=== PATIENT | female | born 1990 | race Caucasian/White ===

== ENCOUNTER 2017-01-07 07:39 | Outpatient (CLI) | payer BC ==
[~2017-01-07] VITALS: Ht 157.5 cm; Wt 73.8 kg
[2017-01-07 07:50] VITALS: BP 122/76; RESP 16; Ht 157.5 cm; Wt 73.8 kg
[2017-01-07] MEDS ORDERED: PREN1TAB17 PO (07:52)
--- NOTE | 2017-01-07 11:41 | RADRPT ---
PROCEDURE: US OB biophysical profile. CLINICAL INDICATION: decreased movements, contractions TECHNIQUE: Multiple sonographic images of the pelvis were obtained. The images were reviewed on a PACS workstation. COMPARISON: No prior studies are available for comparison. FINDINGS: There is a single viable intrauterine gestation. Cardiac activity is present with 144 beats per min [place]mute. There is a vertex presentation. The placenta is anterior. There is no evidence of placental abruption. There is a normal amount of amniotic fluid with an SUSANA = 16.8 cm. Biophysical profile: movement 2/2 tone 2/2. breathing 2/2 SUSANA 2/2 Total 12/28 RPTAT: AA . IMPRESSION: Normal biophysical profile. . .Geronimo Foster MD, MD Date Time Electronically viewed and signed by .Geronimo Foster MD, MD on 01/07/2017 11:41 .S/
--- NOTE | 2017-01-07 11:55 | PN ---
Triage Information Date/Time Reason for visit: Uterine contractions Weeks of Gestation 38+ /Para 2/1 Diabetes: none Hypertention: none Objective Vital Signs Date Time Temp Pulse Resp B/P Pulse Ox O2 Delivery O2 Flow Rate FiO2 01/07/17 07:50 98.0 16 122/76 Heart Rate: 140's Contractions: >10 Minutes Apart Assessment/Plan No Cervical change,BPP 12/28 She will be followed up with Her PMD precautions discussed with patient TAZ HOUSER M.D. Jan 07, 2017 11:54
== END 2017-01-07 12:00 | disposition home or self-care (01) ==
LOC: L-D 07:39 → OBT 07:39
PROVIDERS: ATTEND Obstetrics & Gynecology
DX: O62.9 Abnormality of forces of labor, unspecified (principal); Z3A.38 38 weeks gestation of pregnancy
CPT/HCPCS: 76818; G0463

== ENCOUNTER 2017-01-07 18:49 | Inpatient (IN) | payer BC ==
[~2017-01-07] VITALS: Ht 157.5 cm; Wt 73.8 kg
[~2017-01-07 18:49] MED LIST: PREN1TAB17 PO
[2017-01-07] MEDS ORDERED: LACTATED RINGER'S 1,000 ML IV PRN (19:00)
[2017-01-07] MEDS ORDERED: LACTATED RINGER'S 1,000 ML IV SCH (19:01)
[2017-01-07] MEDS ORDERED: IBUPROFEN 600 MG TAB PO PRN (19:30)
[2017-01-07] MEDS ORDERED: CARBOPROST 250 MCG INJ IM PRN ×2 (19:30→23:30)
[2017-01-07] MEDS ORDERED: BUTORPHANOL 2 MG INJ IV PRN ×2 (19:30)
[2017-01-07] MEDS ORDERED: LIDOCAINE 1% (MPF) 30 ML INJ INJ PRN (19:30)
[2017-01-07] MEDS ORDERED: OXYTOCIN 30 UNITS/LR 500 ML IV PRN ×2 (19:30→23:30)
[2017-01-07] MEDS ORDERED: OXYTOCIN 30 UNITS/LR 500 ML IV SCH ×3 (19:30→23:14)
[2017-01-07] MEDS ORDERED: MISOPROSTOL 200 MCG TAB PR PRN ×2 (19:30→23:30)
[2017-01-07] MEDS ORDERED: HYDROCODONE/APAP (5/325) TAB PO PRN ×2 (19:30→23:30)
[2017-01-07] MEDS ORDERED: METHYLERGONOVINE 0.2 MG INJ IM PRN ×2 (19:30→23:30)
[2017-01-07 20:23] LABS: BASOPHILS % 0.2 % (0.0-2.0); EOSINOPHILS # 0.1 10^3/ul (0.0-0.5); EOSINOPHILS % 0.5 % (0.0-7.0); HEMATOCRIT 30.3 % (37.0-47.0); HEMOGLOBIN 9.9 g/dl (12.0-16.0); LYMPHOCYTES # 1.8 10^3/ul (0.8-2.9); LYMPHOCYTES % 16.2 % (15.0-51.0); MEAN CORPUSCULAR HGB CONC 32.7 g/dl (32.0-37.0); MEAN CORPUSCULAR VOLUME 82.6 fl (82.0-101.0); MEAN PLATELET VOLUME 12.5 fl (7.4-10.4); MONOCYTE # 0.7 10^3/ul (0.3-0.9); MONOCYTES % 6.4 % (0.0-11.0); NEUTROPHILS % 75.3 % (39.0-77.0); PLATELET COUNT 131 10^3/UL (140-415); RED BLOOD COUNT 3.67 10^6/ul (4.20-5.40); RED CELL DISTRIBUTION WIDTH 12.9 % (11.5-14.5)
[2017-01-07 20:49] LABS: INR 0.95; PROTIME 12.7 Sec (12.2-14.2)
[2017-01-07] MEDS ORDERED: FENTAnyl 2MCG/ML-ROPIV 0.2% 100 ML ONE (20:50)
[2017-01-07] MEDS ORDERED: NALOXONE (0.4 MG/ML) INJ IV PRN (21:00)
[2017-01-07] MEDS ORDERED: FENTAnyl 2MCG/ML-ROPIV 0.2% 100 ML BAG EPI SCH (21:00)
--- NOTE | 2017-01-07 23:20 | LDN ---
Date/Time of Note Date/Time of Note DATE: 01/07/17 TIME: 23:17 Delivery Summary of a viable baby girl weighing 3125 grams, or 6# 14oz, 19" long and with Apgars of 9/9. Weeks of Gestation 38w 5d Placenta Delivered: Spontaneously Meconium: none Episiotomy: No Perineal laceration: 2 Laceration repair: Second degree perineal laceation and bilateral very small vaginal lacerations all repaired with 2-0 chromic. Anesthesia type: Epidural Estimated blood loss: 150 Sponge & Needle done & correct: Yes All needle counts correct: Yes Any foreign bodies felt in the: No (vagina) Problems: Delivery Information Sex Infant Sex: female Apgars 1 Minute: 9 5 Minute: 9 Suctioning Nose & mouth suctioned at zohaib: No Delee suction performed: No Umbilical Cord Umbilical cord with: 3 Vessels Cord presentations: no nuchal cord Cord Blood was obtained: Yes Mother & Baby Disposition Disposition Mom & Baby to Maternity; Good: Yes Baby to NICU: No DANIELLE CARTER MD Jan 07, 2017 23:20
--- NOTE | 2017-01-07 23:24 | HP ---
Date/Time of Note Date/Time of Note DATE: 01/07/17 TIME: 23:20 OB - History Hx of Present Free Text/Dictation 26 y.o. with an IUP at 38w 5d came in labor with an exam of 90%/6-7 cm and intact. Chief Complaint: Labor Last Menstrual Period: Apr 11, 2016 Estimated Due Date: Jan 16, 2017 : 2 Para: 1 Care: Good Care Ultrasounds: Normal mid trimester US Obstetrical Complications: None Medical Complications: None Past Family/Social History * Past Medical, Surgical, Family and Obstetric Histories reviewed from chart. Blood Type: O+ Rubella: unknown RPR/VDRL: Negative GBS Status: Negative HBsAG: Unknown OB Admission Exam Vital Signs Vital Signs Afebrile, normotensive. Physical Exam HEENT: WNL Heart: Rhythm Normal Lungs: Clear Abdomen: WNL Extremities: Normal Reflexes: Normal Cervical Dilatation: 6cm Effacement: Other (90%) Station: -2 Membranes: Intact Amniotic Fluid: Clear Heart Rate: 140's Accelerations: Accelerations Present Decelerations: No Decelerations Varibility: Moderate Contractions on Admission: < 5 Minutes Apart Last 72 hours Lab Results CBC & BMP 01/07/17 10:58 OB Assessment/Plan Reason for admission: active labor Plan: Expectant Management DANIELLE CARTER MD Jan 07, 2017 23:24
[2017-01-07] MEDS ORDERED: LANOLIN 7 GM TUBE TOP PRN (23:30)
[2017-01-07] MEDS ORDERED: BENZOCAINE 20% 56 ML SPRAY TOP PRN (23:30)
[2017-01-07] MEDS ORDERED: WITCH HAZEL/GLYCERIN PAD PR PRN (23:30)
[2017-01-08] MEDS: IBUPROFEN 600 MG TAB PO SCH ×5 (00:08→23:15)
[2017-01-08 00:30] VITALS: BP 105/63; RESP 21
[2017-01-08 03:20] VITALS: BP 104/63; RESP 20
[2017-01-08] MEDS: LACTATED RINGER'S 1,000 ML IV* SCH ×4 (03:22→23:14)
[2017-01-08 08:30] VITALS: BP 105/67; PULSE 64; RESP 18
[2017-01-08 10:20] LABS: ABNORMAL IP MESSAGE 1; BASOPHILS % 0.1 % (0.0-2.0); EOSINOPHILS # 0.1 10^3/ul (0.0-0.5); EOSINOPHILS % 0.7 % (0.0-7.0); HEMATOCRIT 28.7 % (37.0-47.0); HEMOGLOBIN 9.1 g/dl (12.0-16.0); LYMPHOCYTES # 2.2 10^3/ul (0.8-2.9); LYMPHOCYTES % 20.1 % (15.0-51.0); MEAN CORPUSCULAR HEMOGLOBIN 26.1 pg (29.0-33.0); MEAN CORPUSCULAR HGB CONC 31.7 g/dl (32.0-37.0); MEAN CORPUSCULAR VOLUME 82.2 fl (82.0-101.0); MEAN PLATELET VOLUME 13.1 fl (7.4-10.4); MONOCYTE # 0.7 10^3/ul (0.3-0.9); MONOCYTES % 6.1 % (0.0-11.0); NEUTROPHILS % 72.1 % (39.0-77.0); PLATELET COUNT 123 10^3/UL (140-415); RED BLOOD COUNT 3.49 10^6/ul (4.20-5.40); RED CELL DISTRIBUTION WIDTH 13.1 % (11.5-14.5); WHITE BLOOD COUNT 10.8 10^3/ul (4.8-10.8)
[2017-01-08 10:40] LABS: POSITIVE DIFF @See below
[2017-01-08 12:28] VITALS: BP 98/66; PULSE 71; RESP 18
--- NOTE | 2017-01-08 15:56 | QN ---
Documentation Comment PPD #1 Doing well and w/o complaints. well. Minimal bleeding. T=98.1 BP 98/66 Fundus firm, NT. Lochia minimal Ext NT, no edema. WBC 10.8 Hgb 9.1 P: D/C tomorrow. DANIELLE CARTER MD Jan 08, 2017 15:56
--- NOTE | 2017-01-08 15:57 | PD.PPDC ---
[employer] Discharge Instruction Condition Patient Condition: Good Diet Diet: Resume Regular Diet Activity/Restrictions Activity: Normal Activity May Shower Restrictions: No Sexual Activity Nothing in the Vagina No [place] No Tampons, douche Follow-up Follow-up with Physician: 6, Week/Weeks Return to clinic for [facility] [employer] Instructions: Fever greater than 101 Chills Worsening abdominal pain Excessive Vaginal Bleeding OB Instructions: Breast Tenderness Depression DANIELLE CARTER MD Jan 08, 2017 15:57
[2017-01-08 16:20] VITALS: BP 101/56; PULSE 68; RESP 18
[2017-01-08 20:00] VITALS: BP 112/60; PULSE 70; RESP 20
[2017-01-09 04:12] VITALS: BP 105/59; PULSE 70; RESP 20
[2017-01-09] MEDS: IBUPROFEN 600 MG TAB PO SCH ×2 (05:03→12:08)
[2017-01-09 08:00] VITALS: BP 122/81; PULSE 70; RESP 18
[2017-01-09] MEDS ORDERED: DIPHTH/TET/ACEL PERTUSS (ADULT) 0.5 ML VIAL IM* ONE (09:00)
--- NOTE | 2017-01-10 20:16 | DS ---
Date/Time of Note Date/Time of Note DATE: 01/10/17 TIME: 20:15 Obstetrical Discharge Record Final Diagnosis Final Diagnosis: Term delivered Vaginal Delivery Obstetrical Delivery: Spontaneous, Laceration, Repaired Complications Augmentation: Yes Induction: No Condition on Discharge Physical Assessment Last Vitals: Afebrile, normotensive Voiding: Yes Bowel Movement: Yes Breast: Filling Fundus: Firm Calf Tenderness: No Patient Condition: Good DANIELLE CARTER MD Jan 10, 2017 20:16
== END 2017-01-09 15:05 | disposition home or self-care (01) | DRG 775 ==
LOC: OBT 18:49 → L-D 18:49 → OBT 19:00 → L-D 20:29 → PP1 01-08 00:46
PROVIDERS: ADMIT Obstetrics & Gynecology; ATTEND Obstetrics & Gynecology
PROC: 10E0XZZ Delivery of Products of Conception, External Approach (ICD-10-PCS; principal; 2017-01-07)
PROC: 0KQM0ZZ Repair Perineum Muscle, Open Approach (ICD-10-PCS; 2017-01-07)
DX: O70.1 Second degree perineal laceration during delivery (principal); Z37.0 Single live birth; Z3A.38 38 weeks gestation of pregnancy
CPT/HCPCS: 62319; 85025; 85610; 85730; 86592; 86703; 86765; 86900; 86901; 87340; 90715; G0463; J2590; J3010; J7120

== ENCOUNTER 2017-12-17 12:54 | Emergency (ER) | END 2017-12-17 16:09 | disposition home or self-care (01) ==

== ENCOUNTER → 2019-01-10 | Outpatient (CLI) | payer BC ==
[~2019-01-10] MED LIST changes: +IBUP-1542 PO; +LORA-441 PO
== END | disposition home or self-care (01) ==
LOC: LAB 13:46
PROVIDERS: ATTEND Internal Medicine
DX: R63.5 Abnormal weight gain (principal)
CPT/HCPCS: 80053; 80061; 81001; 82652; 84436; 84443; 84480; 85025